=== PATIENT | male | born 1980 | race Caucasian/White ===

== ENCOUNTER 2025-04-06 17:19 | Emergency (ER) | payer BC, SELFPAY ==
[2025-04-06 17:32] VITALS: BP 162/100; PULSE 105; RESP 16; TEMP 36.7; O2SAT 93
--- NOTE | 2025-04-06 17:40 | W.ED.GENAD ---
Discharge Plan Disposition Patient Disposition: Home Condition: Stable Discharge Details Clinical Impression: Contusion of left heel Primary Care Provider: Zina,Local ED Provider: Carter Kilgore Home Meds and New Rx's Prescriptions: No Action escitalopram oxalate [Lexapro] 20 mg tablet 20 mg PO DAILY esomeprazole magnesium [Nexium] 20 mg capsule,delayed release(DR/EC) 20 mg PO DAILY amlodipine-benazepril 5-10 mg capsule 1 cap PO DAILY Discharge Instructions Instructions: Minor Contusion ED Additional Instructions: You were seen in the emergency department for the contusion of your left heel, there is no fracture seen on x-ray, please use therapeutic dosing of Tylenol (acetamenophen) & Advil (ibuprofen) in an alternating fashion as follows: Take 1000mg of Tylenol every 6 hours without missing doses- that is 4 times per day. [place] in between the Tylenol dosings, take 400-600mg of Advil also on a 6 hour schedule, that is also 4 times per day. The daily maximum dosing of Tylenol is 4000mg, and the daily maximum dosing of Advil is 2400mg. This is safe to do for weeks. Please note that some common cold medications & prescription pain medications may contain acetamenophen and you need to read OTC drug labels and factor that in to maximum daily dosings. HPI General Date/Time Provider Initiated Documentation: 04/06/25 17:40. HPI Narrative: 44 year-old male presents to ED today by POV/ambulating with a chief complaint of L heel pain, [place], and was slipping down the embankment and instead jumped into the riverbed possiubly 6-8 feet- landing on hardpack surface under shallow water with L heel pain with onset about an hour prior to arrival. Quality described as tender to put weight on but no ROM deficit, no radiation to numbness/tingling, inability to flex/extend foot. Severity is described as moderate with weight-bearing. Palliating factors include took ibuprofen prior. Provoking factors include weight bearing. Patient not anticoagulated. Related Data Home Medications ?Medication ?Instructions ?Recorded ?Confirmed amlodipine 5 mg-benazepril 10 mg 1 cap PO DAILY 04/06/25 04/06/25 capsule escitalopram oxalate 20 mg tablet 20 mg PO DAILY 04/06/25 04/06/25 (Lexapro) esomeprazole magnesium 20 mg 20 mg PO DAILY 04/06/25 04/06/25 capsule,delayed release (Nexium) Allergies Allergy/AdvReac Type Severity Reaction Status Date / Time No Known Allergies Allergy Unverified 04/06/25 17:39 General Stated Complaint: Orthopedic ANUEL: 4 Review of Systems All systems reviewed & are unremarkable except as noted in HPI and below Exam Narrative Exam Narrative: GENERAL APPEARANCE: Well-nourished, non-toxic, awake and alert, atraumatic, no acute distress. SKIN: Warm, pink, dry, intact, without rashes/lesions/ulcerations. HEAD: Normocephalic, atraumatic, normal hair distribution for gender/age. EYES: Normal conjunctiva, no exudates on lids/lashes. ENT: Nares patent, no circumoral cyanosis, no facial swelling NECK: Supple, trachea midline, painless cervical ROM. LUNGS/CHEST: Non-labored respirations, normal A/P diameter, symmetrical expansion, no chest wall deformity HEART (CV/PV): Regular rate, no peripheral edema, no JVD. ABDOMEN: Soft, non-distended, no guarding. MSK: Normal ROM, no swelling/deformity to bilateral UEs or LEs, moving all extremities without weakness, no cyanosis, spine midline without tenderness, normal curvature, L heel tenderness without crepitus, no ecchymosis, no malleoli or tenderness, antalgic gait, able to plantar/dorsiflex the foot, left dorsalis pedis pulse 2+, Achilles is intact with Joyner's test- strong active ROM with achilles NEURO: Mental Status AAOx4 - alert to person, place, time, events No facial droop, no forehead involvement. Motor: No focal weakness - strength 5/5 in bilateral UEs and LEs, proximal and distal, symmetric. Sensory: sensation intact to light touch globally. Gait antalgic. PSYCH: euthymic, cooperative, pleasant, appropriate speech Course Vital Signs Vital signs: Vital Signs Temperature 36.7 C 04/06/25 17:32 Pulse 105 H 04/06/25 17:32 Respiratory Rate 16 04/06/25 17:32 Blood Pressure 162/100 H 04/06/25 17:32 Pulse Oximetry 93 04/06/25 17:32 Temperature 36.7 C 04/06/25 17:32 Temperature Source Tympanic 04/06/25 17:32 Pulse 105 H 04/06/25 17:32 Respiratory Rate 16 04/06/25 17:32 Blood Pressure 162/100 H 04/06/25 17:32 Blood Pressure Position Sitting 04/06/25 17:32 Pulse Oximetry 93 04/06/25 17:32 Oxygen Delivery Method Room Air 04/06/25 17:32 Oxygen Flow Rate 0 04/06/25 17:32 Pain Level 3 04/06/25 17:32 Medical Decision Making This dictation utilizes [id number] dictation software and may contain unedited grammatical errors. 44 year-old male presents to ED today by POV/ambulating with a chief complaint of L heel pain, [place], and was slipping down the embankment and instead jumped into the riverbed possiubly 6-8 feet- landing on hardpack surface under shallow water with L heel pain with onset about an hour prior to arrival. Quality described as tender to put weight on but no ROM deficit, no radiation to numbness/tingling, inability to flex/extend foot. Severity is described as moderate with weight-bearing. Palliating factors include took ibuprofen prior. Provoking factors include weight bearing. Patients' medical history: Has prior orthopedic injuries to the left foot. Family and social history: Noncontributory. Pertinent exam findings / vital signs include L heel tenderness without crepitus, no ecchymosis, no malleoli or tenderness, antalgic gait, able to plantar/dorsiflex the foot, left dorsalis pedis pulse 2+, Achilles is intact with Joyner's test- strong active ROM with achilles. Differential / pathologies of concern include fracture, contusion. Diagnostic studies of: -XR L Foot - no acute fracture seen. Interventions of: -Offered crutches, patient has some at home, he will follow with orthopaedics for any failure to improve 7-10days. ED Course/Assessment/Plan: 44-year-old male presents with left heel pain after he jumped into a river bed while he was falling down embankment, likely has a bone contusion to his calcaneus with no evidence for fracture seen on x-ray, he was offered crutches but refused, I recommend RICE therapy and therapy dosing Tylenol and Profen and following up with orthopedics for any complications. Findings not consistent with Achilles rupture, calcaneal fracture. Disposition of contusion of left heel. Patient verbalized understanding of the plan and return to ED criteria and engaged in shared decision making. Medical Records Medical records reviewed: Yes I reviewed the patient's medical records. Imaging Data Radiologic Study: Attestation: I personally reviewed and interpreted this imaging study as follows: Imaging: X-Ray Radiologist's impression: Exam: XR Left Foot Exam date and time: 04/06/2025 6:11 PM Age: 44 years old Clinical indication: Heel and other: L heel pain; Left TECHNIQUE: Imaging protocol: Radiologic exam of the left foot. Views: 3 or more views. COMPARISON: No relevant prior studies available. FINDINGS: Bones/joints: Normal. Soft tissues: Normal. IMPRESSION: No evidence for acute abnormality. Dictated and Authenticated by: Maryana Craig MD. [facility] All Active Problems (Updated 04/06/25 @ 18:57 by LOYDA Sethi) Contusion of left heel (Acute) Social History Smoking/Tobacco Use Status: Never Smoking risk assessment performed?: Yes Alcohol Intake: current Alcohol Intake frequency: 3 or more drinks per day Alcohol type: beer Drug use: Socially Substance use type: marijuana PAWSS Have you Been Recently Intoxicated or Drunk Within the Last 30 days?: No Have you Ever Experienced Previous Episodes of Alcohol Withdrawal?: No Have you ever Experienced Withdrawal Seizures?: No Have you ever Experienced Delirium Tremens(DT)s?: No Have you ever undergone Alcohol Rehabilitation Treatment (i.e, inpt ot outpatient treatment programs)?: No Have you ever Experienced Blackouts?: No Have you ever Combined Alcohol with other Downers within the last 90 days?: No Have you ever Combined Alcohol with any other Substance of Abuse during the last 90 days?: No Positive Blood Alcohol level on Presentation? [PCS.BAL]: Yes Evidence of Increased Autonomic Activity (i.e. HR>120, tremor, sweating, agitation, nausea)?: No Result: 1
--- NOTE | 2025-04-06 18:13 | DI.RAD_ITS ---
Exam(s) XR FOOT LT COMPLETE EXAM: XR FOOT LT COMPLETE CLINICAL HISTORY: L heel pain. TECHNIQUE: 2D digital imaging was performed of the left foot. Three images were obtained. AP, oblique and lateral views were obtained. COMPARISON: No exams were available for comparison FINDINGS: BONES: No acute fracture is present. No bony destructive lesion is seen. There is an enthesophyte at the posterior calcaneus. JOINTS: No dislocation present. The joint spaces are well maintained. SOFT TISSUE: Normal. IMPRESSION: 1. There is no acute fracture or dislocation. 2. Enthesophyte at the posterior calcaneus. 3. The preliminary [facility] report was reviewed. DATA REPOSITORY: RADIATION DOSE DELIVERED:
--- NOTE | 2025-04-06 18:54 | DI.[facility]_ITS ---
PROCEDURE INFORMATION: Exam: XR Left Foot Exam date and time: 04/06/2025 6:11 PM Age: 44 years old Clinical indication: Heel and other: L heel pain; Left TECHNIQUE: Imaging protocol: Radiologic exam of the left foot. Views: 3 or more views. COMPARISON: No relevant prior studies available. FINDINGS: Bones/joints: Normal. Soft tissues: Normal. IMPRESSION: No evidence for acute abnormality. Dictated and Authenticated by: Maryana Craig MD. Orderin Magui Machado MD
== END 2025-04-06 19:15 | disposition home or self-care (01) ==
LOC: ER 19:31
PROVIDERS: Emergency Provider Physician Assistant
DX: S90.32XA Contusion of left foot, initial encounter (principal); X58.XXXA Exposure to other specified factors, initial encounter
CPT/HCPCS: 99283 ×2; 73630